=== PATIENT | female | born 1950 | race Caucasian/White ===

== ENCOUNTER → 2018-05-15 02:58 | Outpatient (CLI) | payer MEDICARE, OTHER, SELFPAY ==
[2018-05-15 08:37] LABS: Hemoglobin A1C 7.3 % (4.5-6.2)
[2018-05-15 08:40] LABS: ALT 38 U/L (12-78); AST 19 U/L (15-37); Albumin 3.4 g/dL (3.4-5.0); Alkaline Phosphatase 94 U/L (46-116); Anion Gap 8.7 mmol/L (3-11); BUN 26 mg/dL (7-18); Bilirubin, Total 0.4 mg/dL (0.2-1.0); CO2 28.3 mmol/L (21.0-32.0); CREATININE 1.08 mg/dL (0.55-1.02); Calcium 8.8 mg/dL (8.5-10.1); Chloride 104 mmol/L (98-107); Cholesterol 129 mg/dL (50-200); Glucose 135 mg/dL (70-100); HDL Cholesterol 26 mg/dL (40-60); LDL CHOLESTEROL 81 mg/dL (<100); Potassium 4.3 mmol/L (3.5-5.1); Sodium 141 mmol/L (136-145); Triglyceride 237 mg/dL (30-150)
[2018-05-15 09:02] LABS: Total Protein 6.1 g/dL (6.4-8.2)
[2018-05-15 09:53] LABS: Microalb ug/mg Crea 24.4 ug/mg Cr
== END ==
PROVIDERS: PCP Family Medicine; Visit Provider Family Medicine
DX: E11.9 Type 2 diabetes mellitus without complications (principal); I10 Essential (primary) hypertension; E78.5 Hyperlipidemia, unspecified; M1A.0720 Idiopathic chronic gout, left ankle and foot, without tophus (tophi)
CPT/HCPCS: 80053; 80061; 83721; 82043; 82570; 83036; 84550

== ENCOUNTER 2018-10-12 01:39 | Outpatient (CLI) | payer MEDICARE, OTHER, SELFPAY ==
[2018-10-12 13:15] LABS: Hemoglobin A1C 7.5 % (4.5-6.2)
== END 2018-10-12 01:59 ==
PROVIDERS: PCP Family Medicine; Visit Provider Family Medicine
DX: E11.9 Type 2 diabetes mellitus without complications (principal)
CPT/HCPCS: 36415; 83036

== ENCOUNTER 2019-01-08 01:25 | Outpatient (CLI) | payer MEDICARE, OTHER, SELFPAY ==
[2019-01-08 07:54] LABS: Hemoglobin A1C 7.6 % (4.5-6.2)
[2019-01-08 09:09] LABS: ALT 41 U/L (12-78); AST 18 U/L (15-37); Albumin 3.4 g/dL (3.4-5.0); Alkaline Phosphatase 91 U/L (46-116); Anion Gap 10.3 mmol/L (3-11); BUN 26 mg/dL (7-18); Bilirubin, Total 0.3 mg/dL (0.2-1.0); CO2 27.7 mmol/L (21.0-32.0); Chloride 104 mmol/L (98-107); Cholesterol 147 mg/dL (50-200); Glucose 158 mg/dL (70-100); HDL Cholesterol 23 mg/dL (40-60); LDL CHOLESTEROL 88 mg/dL (<100); Potassium 4.3 mmol/L (3.5-5.1); Sodium 142 mmol/L (136-145); Total Protein 6.1 g/dL (6.4-8.2); Triglyceride 250 mg/dL (30-150)
[2019-01-08 09:24] LABS: Calcium 9.4 mg/dL (8.5-10.1)
== END 2019-01-08 01:45 ==
PROVIDERS: PCP Family Medicine; Visit Provider Family Medicine
DX: E11.9 Type 2 diabetes mellitus without complications (principal); I10 Essential (primary) hypertension; E78.5 Hyperlipidemia, unspecified
CPT/HCPCS: 36415; 80053; 80061; 83721; 83036

== ENCOUNTER 2019-08-15 03:19 | Outpatient (CLI) | payer MEDICARE, OTHER, SELFPAY ==
[2019-08-15 11:22] LABS: Hemoglobin A1C 8.3 % (4.5-6.2)
[2019-08-15 11:57] LABS: COMMENT (LAB VIEW ONLY) 156.85 mg/dL; Microalb ug/mg Crea 22.3 ug/mg Cr
== END 2019-08-15 03:39 ==
PROVIDERS: PCP Family Medicine; Visit Provider Family Medicine
DX: E11.9 Type 2 diabetes mellitus without complications (principal)
CPT/HCPCS: 36415; 82043; 82570; 83036

== ENCOUNTER 2019-12-02 01:22 | Outpatient (CLI) | payer MEDICARE, OTHER, SELFPAY ==
--- NOTE | 2019-12-02 14:45 | DI.MAMMO_ITS ---
EXAM: MG MAMMO SCREENING CLINICAL HISTORY: SCREENING, Z12.39 TECHNIQUE: Bilateral full field digital CC and MLO mammographic images were obtained with 3D tomosyn thesis and utilizing computer aided detection (CAD). COMPARISON: Available for comparison. FINDINGS: Masses/Architectural Distortion: None seen. Stable bilateral nodules. Microcalcifications: No suspicious pleomorphic-type are seen. Skin Thickening/Nipple Retraction: None. IMPRESSION: 1. No significant interval change with no specific features of malignancy noted. 2. Unless there is more urgent need, screening mammography is recommended, as per [employer] guidelines. BI-RADS Cat 1 - Negative Breast Density - Category B - Scattered areas of fibroglandular density A negative radiographic report should not delay biopsy if a dominant or clinically suspicious mass is present. Up to ten percent of cancers are not identified on mammography. A negative report may reinforce clinical impression. Adenosis and dense breasts may obscure an underlying neoplasm. False positive reports average 6 to 10%. Patient will receive a letter notifying them of these results.
== END 2019-12-02 01:42 ==
PROVIDERS: PCP Family Medicine; Visit Provider Family Medicine
DX: Z12.31 Encounter for screening mammogram for malignant neoplasm of breast (principal)
CPT/HCPCS: 77063; 77067

== ENCOUNTER 2019-12-02 15:29 | Outpatient (CLI) | payer MEDICARE, OTHER, SELFPAY ==
[2019-12-02 16:11] LABS: Hemoglobin A1C 7.5 % (3.8-5.6)
== END 2019-12-02 15:49 ==
PROVIDERS: PCP Family Medicine; Visit Provider Family Medicine
DX: E11.9 Type 2 diabetes mellitus without complications (principal)
CPT/HCPCS: 36415; 80048; 80061; 83036; 84550

== ENCOUNTER 2020-03-30 02:11 | Outpatient (CLI) | payer MEDICARE, OTHER, SELFPAY ==
[2020-03-30 08:36] LABS: Hemoglobin A1C 7.1 % (3.8-5.6)
[2020-03-30 09:05] LABS: ALT 30 U/L (14-59); AST 22 U/L (15-37); Albumin 3.5 g/dL (3.4-5.0); Alkaline Phosphatase 90 U/L (46-116); Anion Gap 6.6 mmol/L (3-11); BUN 24 mg/dL (7-18); Bilirubin, Total 0.4 mg/dL (0.2-1.0); CO2 30.4 mmol/L (21.0-32.0); CREATININE 1.13 mg/dL (0.55-1.02); Calcium 9.1 mg/dL (8.5-10.1); Calculated LDL 74 mg/dL (<100); Chloride 103 mmol/L (98-107); Cholesterol 149 mg/dL (<200); Estimated GFR 47.47 (mL/min/1.73m2); Glucose 136 mg/dL (74-106); HDL Cholesterol 23 mg/dL (40-60); Potassium 4.3 mmol/L (3.5-5.1); Sodium 140 mmol/L (136-145); Total Protein 6.2 g/dL (6.4-8.2); Triglyceride 264 mg/dL (<150)
== END 2020-03-30 02:31 ==
PROVIDERS: PCP Family Medicine; Visit Provider Family Medicine
DX: E11.9 Type 2 diabetes mellitus without complications (principal)
CPT/HCPCS: 36415; 80053; 80061; 83036

== ENCOUNTER 2020-08-25 03:36 | Outpatient (CLI) | payer MEDICARE, OTHER, SELFPAY ==
[2020-08-25 12:57] LABS: Hemoglobin A1C 7.7 % (<5.7)
[2020-08-25 13:04] LABS: COMMENT (LAB VIEW ONLY) 94.97 mg/dL; Microalb ug/mg Crea 5.6 ug/mg Cr
[2020-08-25 13:37] LABS: ALT 34 U/L (14-59); AST 21 U/L (15-37); Albumin 3.5 g/dL (3.4-5.0); Alkaline Phosphatase 92 U/L (46-116); BUN 35 mg/dL (7-18); Bilirubin, Total 0.4 mg/dL (0.2-1.0); CREATININE 1.33 mg/dL (0.55-1.02); Calcium 8.9 mg/dL (8.5-10.1); Chloride 102 mmol/L (98-107); Estimated GFR 39.22 (mL/min/1.73m2); Glucose 122 mg/dL (74-106); Potassium 4.1 mmol/L (3.5-5.1); Sodium 137 mmol/L (136-145); Total Protein 6.2 g/dL (6.4-8.2)
== END 2020-08-25 03:56 ==
PROVIDERS: PCP Family Medicine; Visit Provider Family Medicine
DX: E11.9 Type 2 diabetes mellitus without complications (principal)
CPT/HCPCS: 36415; 80053; 82043; 82570; 83036

== ENCOUNTER 2021-01-01 02:35 | Outpatient (CLI) | payer MEDICARE, OTHER, SELFPAY ==
[2021-01-01 08:40] LABS: Microalb ug/mg Crea 9.8 ug/mg Cr
[2021-01-01 09:02] LABS: BUN 33 mg/dL (7-18); CREATININE 1.4 mg/dL (0.55-1.02); Chloride 103 mmol/L (98-107); Estimated GFR 36.96 (mL/min/1.73m2); Glucose 138 mg/dL (74-106); Potassium 3.6 mmol/L (3.5-5.1); Sodium 139 mmol/L (136-145); Uric Acid 6.1 mg/dL (2.6-6.0)
[2021-01-01 14:47] LABS: Vitamin B12 570 pg/mL (193-986)
== END 2021-01-01 02:36 | disposition home or self-care (01) ==
LOC: LBO 02:36
PROVIDERS: PCP Family Medicine; Visit Provider Family Medicine
DX: E11.9 Type 2 diabetes mellitus without complications (principal); E79.0 Hyperuricemia without signs of inflammatory arthritis and tophaceous disease
CPT/HCPCS: 36415; 80048; 82043; 82570; 82607; 83036; 84550

== ENCOUNTER 2021-04-01 02:27 | Outpatient (CLI) | payer MEDICARE, OTHER, SELFPAY ==
[2021-04-01 12:30] LABS: Anion Gap 10.3 mmol/L (3-11); BUN 26 mg/dL (7-18); CO2 28.7 mmol/L (21.0-32.0); CREATININE 1.1 mg/dL (0.55-1.02); Calcium 8.7 mg/dL (8.5-10.1); Chloride 104 mmol/L (98-107); Estimated GFR 48.82 (mL/min/1.73m2); Glucose 138 mg/dL (74-106); Potassium 3.6 mmol/L (3.5-5.1); Sodium 143 mmol/L (136-145); Uric Acid 5.5 mg/dL (2.6-6.0)
[2021-04-01 12:39] LABS: Hemoglobin A1C 7.4 % (<5.7)
[2021-04-01 12:53] LABS: Calculated LDL 28 mg/dL (<100); Cholesterol 81 mg/dL (<200); HDL Cholesterol 24 mg/dL (40-60); Triglyceride 146 mg/dL (<150)
== END 2021-04-01 02:28 | disposition home or self-care (01) ==
PROVIDERS: PCP Family Medicine; Visit Provider Family Medicine
DX: E11.9 Type 2 diabetes mellitus without complications (principal); E79.0 Hyperuricemia without signs of inflammatory arthritis and tophaceous disease
CPT/HCPCS: 36415; 80048; 80061; 83036; 84550

== ENCOUNTER 2021-07-05 00:51 | Outpatient (CLI) | payer MEDICARE, OTHER, SELFPAY ==
--- NOTE | 2021-07-05 07:45 | DI.MAMMO_ITS ---
Exam(s) MAMMO SCREENING EXAM: MAMMO SCREENING CLINICAL HISTORY: screening,z12.39. TECHNIQUE: Bilateral full field digital CC and MLO mammographic images were obtained with 3D tomosyn thesis and utilizing computer aided detection (CAD). COMPARISON: Prior mammograms dating back to 2011, the most recent being November 2019. FINDINGS: There are no CAD designations. Small nodular density medial of center in the left breast is unchanged from 2014 and therefore benign . Other nodular density more anteromedially in the left breast also unchanged prior studies. There are no new spiculated masses nor malignant-appearing microcalcification groups in either breast . There is no significant architectural distortion nor skin thickening-retraction. IMPRESSION: Stable benign findings. No radiographic evidence of malignancy. BI-RADS Category 2 - Benign Findings Breast Density - Category B - Scattered areas of fibroglandular density Breast density Category C or D implies that the patient has dense breast tissue. Dense breast tissue can make it harder to find cancer on a mammogram. Dense breast tissue is also associated with an incr eased risk of breast cancer. This information about the result of the mammogram report was provided to the patient to raise their awareness. Use this report when you speak with the patient about their risks for breast cancer, which includes their family history. At that time, you may recommend additional screening tests (Ultrasoun d or MRI) as these tests may add significant information. A negative radiographic report should not delay biopsy if a dominant or clinically suspicious mass is present. Up to ten percent of cancers are not identified on mammography. A negative report may reinforce clinical impression. Adenosis and dense breasts may obscure an underlying neoplasm. False positive reports average 6 to 10%. Patient will receive a letter notifying them of these results.
== END 2021-07-05 01:11 ==
PROVIDERS: PCP Family Medicine; Visit Provider Family Medicine
DX: Z12.31 Encounter for screening mammogram for malignant neoplasm of breast (principal)
CPT/HCPCS: 77063; 77067

== ENCOUNTER 2022-02-19 20:53 | Emergency (ER) | payer MEDICARE, OTHER, SELFPAY ==
[2022-02-19 21:07] VITALS: BP 177/62; PULSE 97; RESP 16; TEMP 36.8; O2SAT 96
--- NOTE | 2022-02-19 21:34 | W.ED.GENAD ---
Discharge Plan Disposition Patient Disposition: HOME Condition: Good Discharge Details Clinical Impression: URI (upper respiratory infection), Acute otitis media, left Primary Care Provider: Jeyson Abernathy ED Provider: Salazar Benz Home Meds and New Rx's Prescriptions: New amoxicillin-pot clavulanate 875-125 mg tablet 1 tab PO BID 5 Days Qty: 10 0RF No Action allopurinol 100 mg tablet 100 mg PO DAILY Qty: 90 4RF amlodipine 2.5 mg tablet 2.5 mg PO DAILY Qty: 90 4RF chlorthalidone 50 mg tablet 50 mg PO DAILY Qty: 90 4RF Jardiance 25 mg tablet 25 mg PO DAILY Qty: 90 4RF losartan 100 mg tablet 100 mg PO DAILY Qty: 90 4RF metformin 500 mg tablet extended release 24hr 1,000 mg PO DAILY Qty: 180 4RF rosuvastatin 20 mg tablet 20 mg PO DAILY Qty: 90 4RF multivitamin 1 EACH tablet 1 tab PO DAILY aspirin 325 MG tablet 325 mg PO DAILY Qty: 100 (DME) FreeStyle Lance [employer] Mark Misc See Rx Instructions [id number] .MEDSUPPLY Qty: 1 0RF Rx Instructions: As directed indomethacin 50 mg capsule 50 mg PO TID PRN (Reason: gout) Qty: 30 1RF albuterol sulfate 90 mcg/actuation HFA aerosol inhaler 2 puff IH QID PRN (Reason: shortness of breath or wheezing) Qty: 18 4RF cholecalciferol (vitamin D3) 25 mcg (1,000 unit) capsule 1,000 unit PO DAILY Qty: 90 4RF omega-3 fatty acids-fish oil 360-1,200 mg capsule 1 cap PO DAILY Qty: 120 1RF clotrimazole 1 % cream 1 applic topical BID Qty: 45 2RF Discharge Instructions Instructions: Ear Infection (ED) Additional Instructions: At this time your symptoms appear consistent with otitis media which is an infection of your ear on the left. You also likely have a very early mild pneumonia. Please take the antibiotic Augmentin as directed. 1 pill every 12 hours. The remainder of the prescription has been sent to your pharmacy. Please take [id number] loratadine 10 mg every 24 hours to help with the congestion in your ears. Please take your Tessalon Pearls as directed. If you notice any worsening of your symptoms, or any new symptoms such as vomiting, diarrhea, fever, chills, shortness of breath, chest pain, numbness, weakness, or fainting , please return immediately to the emergency department for reevaluation. Please follow up with your primary care provider as soon as possible for reassessment and reevaluation. As always, it was a pleasure participating in your medical care today. Referrals: Jeyson Abernathy MD [Primary Care Provider] - Discharge Data Discharge Date/Time-TO BE ENTERED AT DEPARTURE: 02/19/22 21:50 Medical Decision Making 71-year-old female with a past medical history of distant tobacco use, diabetes mellitus, hypertension, high cholesterol, who recently just got back from a trip to [place], presents today for evaluation of cough, left ear pain, mild headache. Patient states that the symptoms been present for the last few days. She denies any drainage from the ear. It is not the worst headache of her life. The patient denies any headache red flags of worst headache of life, thunderclap headache, neck pain, fever, chills, concerning family history of polycystic kidney disease, Marfan syndrome, Mary-Danlos syndrome, abdominal aortic aneurysm, aortic dissection, or intracranial aneurysm. She denies any chest pain or shortness of breath. She denies any vomiting or diarrhea. No other complaints at this time. No other modifying factors Great memory physical exam demonstrates notable left-sided otitis media. In addition to the there is evidence of mild crackles scattered throughout. Suspect mild bronchitis versus early pneumonia in addition to her otitis media. Will treat with Augmentin for both. Antibiotic choice: We have chosen to give Augmentin here for the patient's pneumonia. Recent resistant pattern studies from our hospital as well as other local facilities including [facility] have both demonstrated significant resistance to azithromycin, and notable susceptibility to common community-acquired pneumonia organisms for both amoxicillin, and Augmentin. Discussed red flags for which to return. Will recommend loratadine as well for decongestion. I have extensively reviewed the treatment plan and discharge instructions with the patient. I have addressed all patient concerns at this time. The patient was made aware of what symptoms to monitor for that would warrant a return to the emergency department. Discussed the plan with the patient, they demonstrate verbal understanding and agreement with our assessment and plan at this time. The documentation in this chart was dictated using [employer] dictation software. Please excuse any dictation errors. Of note the patient's flu/COVID/RSV are all negative HPI General Date/Time Provider Initiated Documentation: 02/19/22 21:23. HPI Narrative: 71-year-old female with a past medical history of distant tobacco use, diabetes mellitus, hypertension, high cholesterol, who recently just got back from a trip to [place], presents today for evaluation of cough, left ear pain, mild headache. Patient states that the symptoms been present for the last few days. She denies any drainage from the ear. It is not the worst headache of her life. The patient denies any headache red flags of worst headache of life, thunderclap headache, neck pain, fever, chills, concerning family history of polycystic kidney disease, Marfan syndrome, Mary-Danlos syndrome, abdominal aortic aneurysm, aortic dissection, or intracranial aneurysm. She denies any chest pain or shortness of breath. She denies any vomiting or diarrhea. No other complaints at this time. No other modifying factors Related Data Home Medications Medication Instructions Recorded Confirmed multivitamin 1 tab PO DAILY 02/01/13 02/19/22 aspirin 325 mg tablet 325 mg PO DAILY #100 tab-caps 09/17/14 02/19/22 flash glucose scanning reader #1 ea 10/13/19 12/06/21 (FreeStyle Lance [employer] Mark) indomethacin 50 mg capsule 50 mg PO TID PRN gout #30 caps 02/03/20 12/06/21 albuterol sulfate 90 mcg/actuation 2 puff inhalation QID PRN 05/11/20 12/06/21 aerosol inhaler shortness of breath or wheezing #18 grams cholecalciferol (vitamin D3) 25 1,000 unit PO DAILY #90 tab-caps 01/19/21 02/19/22 mcg (1,000 unit) capsule omega-3 fatty acids-fish oil 360 1 cap PO DAILY #120 tab-caps 01/19/21 02/19/22 mg-1,200 mg capsule clotrimazole 1 % topical cream 1 applic topical BID #45 grams 07/26/21 02/19/22 allopurinol 100 mg tablet 100 mg PO DAILY #90 tab-caps 09/06/21 02/19/22 amlodipine 2.5 mg tablet 2.5 mg PO DAILY #90 tabs 09/06/21 02/19/22 chlorthalidone 50 mg tablet 50 mg PO DAILY #90 tabs 09/06/21 02/19/22 empagliflozin 25 mg tablet 25 mg PO DAILY #90 tabs 09/06/21 02/19/22 (Jardiance) losartan 100 mg tablet 100 mg PO DAILY #90 tabs 09/06/21 02/19/22 metformin 500 mg tablet,extended 1,000 mg PO DAILY #180 tabs 09/06/21 02/19/22 release 24hr rosuvastatin 20 mg tablet 20 mg PO DAILY #90 tabs 09/06/21 02/19/22 amoxicillin 875 mg-potassium 1 tab PO BID 5 days #10 tabs 02/19/22 clavulanate 125 mg tablet Previous Rx's Medication Instructions Recorded flash glucose scanning reader #1 ea 10/13/19 (Zazubae [employer] Mark) indomethacin 50 mg capsule 50 mg PO TID PRN gout #30 caps 02/03/20 albuterol sulfate 90 mcg/actuation 2 puff inhalation QID PRN 05/11/20 aerosol inhaler shortness of breath or wheezing #18 grams cholecalciferol (vitamin D3) 25 1,000 unit PO DAILY #90 tab-caps 01/19/21 mcg (1,000 unit) capsule omega-3 fatty acids-fish oil 360 1 cap PO DAILY #120 tab-caps 01/19/21 mg-1,200 mg capsule clotrimazole 1 % topical cream 1 applic topical BID #45 grams 07/26/21 allopurinol 100 mg tablet 100 mg PO DAILY #90 tab-caps 09/06/21 amlodipine 2.5 mg tablet 2.5 mg PO DAILY #90 tabs 09/06/21 chlorthalidone 50 mg tablet 50 mg PO DAILY #90 tabs 09/06/21 empagliflozin 25 mg tablet 25 mg PO DAILY #90 tabs 09/06/21 (Jardiance) losartan 100 mg tablet 100 mg PO DAILY #90 tabs 09/06/21 metformin 500 mg tablet,extended 1,000 mg PO DAILY #180 tabs 09/06/21 release 24hr rosuvastatin 20 mg tablet 20 mg PO DAILY #90 tabs 09/06/21 amoxicillin 875 mg-potassium 1 tab PO BID 5 days #10 tabs 02/19/22 clavulanate 125 mg tablet Allergies Allergy/AdvReac Type Severity Reaction Status Date / Time Gadolinium-Containing Allergy Intermediate Skin Rash Verified 02/19/22 21:10 Contrast Medi nickel Allergy Unknown Skin Rash Verified 02/19/22 21:10 Calcium Channel Blocking AdvReac Severe PEDAL EDEMA Verified 02/19/22 21:10 Agents-Dih atorvastatin AdvReac Unknown INTOLERANT, Verified 02/19/22 21:10 WEAKNESS General Stated Complaint: RespSymp NILSON: 4 Review of Systems All systems reviewed & are unremarkable except as noted in HPI and below PFSH All Active Problems URI (upper respiratory infection) (Acute) Acute otitis media, left (Acute) Heart murmur (Acute) History of early systolic murmur, consistent with benign murmur Obesity (Chronic) COVID-19 (Acute) positive test on 10-14-20 1st dose of vaccine: 09-22-20 Elevated uric acid in blood (Acute 05/09/14) ?one episode of acute arthritis 2013 Controlled type 2 diabetes mellitus without complication, without long-term current use of insulin (Acute 11/07/16) GRF 42 ml/min; on Metformin low dose Hyperlipidemia (Acute) Essential hypertension (Acute) Medical History DM (diabetes mellitus) HTN (hypertension) Surgical History Colonoscopy - MAC (01/08/18) Dilation and curettage X 2 Incision & Drainage, Abscess or Hematoma (09/25/13) RIGHT HAND Family History Mother Asthma Cancer Father , age 54 Heart disease Myocardial infarction Sister Bladder cancer Sister Diabetes Essential hypertension Brother No problems noted. Maternal Grandfather Alcohol abuse Heart disease Paternal Grandfather Lung cancer Maternal Grandmother Heart disease Paternal Grandmother Essential hypertension Heart disease Uterine cancer Son Essential hypertension Daughter Alcohol abuse Depression Social History Smoking/Tobacco Use Status: Former Tobacco Use Tobacco: How many years used: 16 Smoking risk assessment performed?: Yes Alcohol Intake: never Drug use: Never Household members: none Communication Needs: Hard of Hearing Pets and animals: No Sexually active: No Current gender identity: decline to answer What is your relationship status?: How often do you talk on the phone with friends or family?: three or more times per week How often do you get together with friends or relatives?: three or more times per week How often do you attend methodist or sabianism services?: 4 or more times per year Do you belong to any clubs or organized social groups?: no Panel score (0-1 are the most socially isolated patients): 2 What type of physical activity do you participate in: walking Duration: 15-30 minutes/day Frequency: 1-2 times per week Raquel/Latter-Day: congre Special raquel needs: No Seatbelt use: always Drive intox or ride w/intox emergency vehicle driver: No Do you feel safe at home: Yes Do you feel safe in your relationship?: Yes Exam Narrative Exam Narrative: 1.Const: Well-nourished, Well-developed, appearing stated age 2.Eyes: PERRL, no conjunctival injection, and symmetrical lids. 3.ENT: Atraumatic external nose and ears. Moist MM. Neck: Symmetric, trachea midline, No thyromegaly. Left ear patient demonstrates notable left-sided otitis media with effusion, no evidence of rupture. Right side tympanic membrane is normal. Patient demonstrates good movement of cervical neck. There is no nuchal rigidity, no nuchal tenderness. Patient is able to flex the neck without any difficulty or significant pain. Negative Kernig's and Brudzinski sign. 4.CVS: +S1/S2, No murmurs or gallops. Peripheral pulses 2+ and equal in all extremities. Brisk capillary refill in all extremities. 5.RESP: Unlabored respiratory effort. Scattered crackles. No wheezes or rhonchi. 6.GI: Soft, Nontender/Nondistended, No hepatosplenomegaly. No guarding or rebound. 7.MSK: Normocephalic/Atraumatic, Extremities w/o deformity or ttp No cyanosis or clubbing, Normal movement of all extremities 8.Skin: Warm, Dry. No rashes or lesions. 9.Neuro: metal gauge maker II-XII grossly intact. Sensation grossly intact, no focal neurologic deficits. 10.Psych: (AAO) x3. Appropriate mood and affect Course Vital Signs Vital signs: Vital Signs Temperature 36.8 C 02/19/22 21:07 Pulse 97 H 02/19/22 21:07 Respiratory Rate 16 02/19/22 21:07 Blood Pressure 177/62 H 02/19/22 21:07 Pulse Oximetry 96 02/19/22 21:07 Temperature 36.8 C 02/19/22 21:07 Temperature Source Oral 02/19/22 21:07 Pulse 97 H 02/19/22 21:07 Respiratory Rate 16 02/19/22 21:07 Respiratory Effort Non-Labored 02/19/22 21:12 Blood Pressure 177/62 H 02/19/22 21:07 Pulse Oximetry 96 02/19/22 21:07 Pain Level 4 02/19/22 21:07
[2022-02-19 21:43] VITALS: BP 157/59; PULSE 99; RESP 18; O2SAT 96
[2022-02-19] MEDS: Amoxicillin 875/Clav. 125 TAB PO (21:44)
[2022-02-19] MEDS: Amox. 875/Clav. 125, 2 TABS/BTL 1 TAB PO (21:44)
[2022-02-19 22:38] LABS: COVID-19 PCR Negative (Negative); Influenza A PCR Negative (Negative); Influenza B PCR Negative (Negative); RSV PCR Negative (Negative)
[2022-02-19 22:46] LABS: Source Nasopharynx
== END 2022-02-19 21:50 | disposition home or self-care (01) ==
PROVIDERS: Emergency Provider Student in an Organized Health Care Education/Training Program; PCP Family Medicine
DX: J06.9 Acute upper respiratory infection, unspecified (principal); H66.92 Otitis media, unspecified, left ear
CPT/HCPCS: 87637; 99283

== ENCOUNTER 2022-03-22 02:52 | Outpatient (CLI) | payer MEDICARE, OTHER, SELFPAY ==
[2022-03-22 13:06] LABS: ALT 38 U/L (14-59); AST 25 U/L (15-37); Albumin 3.3 g/dL (3.4-5.0); Alkaline Phosphatase 81 U/L (46-116); Anion Gap 7.9 mmol/L (3-11); BUN 35 mg/dL (7-18); Bilirubin, Total 0.3 mg/dL (0.2-1.0); CO2 29.1 mmol/L (21.0-32.0); CREATININE 1.1 mg/dL (0.55-1.02); Calcium 8.7 mg/dL (8.5-10.1); Calculated LDL 25 mg/dL (<100); Chloride 101 mmol/L (98-107); Cholesterol 102 mg/dL (<200); Estimated GFR 48.69 (mL/min/1.73m2); Glucose 163 mg/dL (74-106); HDL Cholesterol 25 mg/dL (40-60); Potassium 3.3 mmol/L (3.5-5.1); Sodium 138 mmol/L (136-145); Total Protein 6.1 g/dL (6.4-8.2); Triglyceride 260 mg/dL (<150)
[2022-03-22 13:16] LABS: COMMENT (LAB VIEW ONLY) 108.88 mg/dL; Microalb ug/mg Crea 9.5 ug/mg Cr
[2022-03-22 13:27] LABS: Hemoglobin A1C 8.3 % (<5.7)
[2022-03-23 10:55] LABS: Lab Add On Test DONE
[2022-03-23 11:14] LABS: Uric Acid 5.2 mg/dL (2.6-6.0)
== END 2022-03-22 02:53 | disposition home or self-care (01) ==
LOC: LOS 02:53
PROVIDERS: PCP Family Medicine; Visit Provider Family Medicine
DX: E11.9 Type 2 diabetes mellitus without complications (principal); I10 Essential (primary) hypertension
CPT/HCPCS: 36415; 80053; 80061; 82043; 82570; 83036; 84550

== ENCOUNTER 2022-09-29 02:35 | Outpatient (CLI) | payer MEDICARE, OTHER, SELFPAY ==
[2022-09-29 07:59] LABS: Hemoglobin A1C 9.1 % (<5.7)
[2022-09-29 08:03] LABS: ALT 36 U/L (14-59); AST 19 U/L (15-37); Albumin 3.5 g/dL (3.4-5.0); Alkaline Phosphatase 95 U/L (46-116); Anion Gap 11.6 mmol/L (3-11); BUN 28 mg/dL (7-18); Bilirubin, Total 0.4 mg/dL (0.2-1.0); CO2 27.4 mmol/L (21.0-32.0); CREATININE 1.1 mg/dL (0.55-1.02); Calcium 8.8 mg/dL (8.5-10.1); Chloride 102 mmol/L (98-107); Estimated GFR 52.73 (mL/min/1.73m2); Glucose 204 mg/dL (74-106); Potassium 3.2 mmol/L (3.5-5.1); Sodium 141 mmol/L (136-145); Total Protein 6.7 g/dL (6.4-8.2)
[2022-09-30 11:28] LABS: Varicella IgG Antibody Positive (See Note)
[2022-09-30 11:31] LABS: Measles IgG Antibody Positive (See Note)
[2022-09-30 11:33] LABS: Mumps Antibody IgG Negative (See Note)
[2022-09-30 11:35] LABS: Rubella IgG Ab (UVM) Positive (See Note)
== END 2022-09-29 02:36 | disposition home or self-care (01) ==
LOC: LBO 02:35
PROVIDERS: PCP Family Medicine; Visit Provider Family Medicine
DX: E11.9 Type 2 diabetes mellitus without complications (principal); Z02.1 Encounter for pre-employment examination
CPT/HCPCS: 36415; 80053; 86787; 83036; 86735; 86762; 86765

== ENCOUNTER 2022-12-14 01:28 | Outpatient (CLI) | payer MEDICARE, OTHER, SELFPAY ==
--- NOTE | 2022-12-14 09:02 | DI.MAMMO_ITS ---
Exam(s) MAMMO SCREENING EXAM: MAMMO SCREENING CLINICAL HISTORY: screening,Z12.39 TECHNIQUE: Bilateral full field digital CC and MLO mammographic images were obtained with 3D tomosyn thesis and utilizing computer aided detection (CAD). COMPARISON: Available for comparison. FINDINGS: Masses/Architectural Distortion: There are stable bilateral pulmonary nodules. No suspicious nodules or areas of architectural distortion. There is a stable area of breast asymmetry in the upper right breast. Microcalcifications: No suspicious pleomorphic-type are seen. Skin Thickening/Nipple Retraction: None. IMPRESSION: 1. No significant interval change with no specific features of malignancy noted. 2. Unless there is more urgent need, screening mammography is recommended, as per [place] [employer] guidelines. BI-RADS Category 2 - Benign Findings Breast Density - Category B - Scattered areas of fibroglandular density Breast density category C or D implies that the patient has dense breast tissue. Dense breast tissue is very common and is not abnormal but dense breast tissue can make it harder to find cancer on a ma mmogram. Also, dense breast tissue may increase their breast cancer risk. This information about the result of the mammogram report was provided to the patient to raise their awareness. Use this report when you speak with the patient about their risks for breast cancer, which includes their family hist ory. At that time, you may recommend for more screening tests (Ultrasound or MRI) as they might be us eful based on their risk. A negative radiographic report should not delay biopsy if a dominant or clinically suspicious mass is present. Up to ten percent of cancers are not identified on mammography. A negative report may reinforce clinical impression. Adenosis and dense breasts may obscure an underlying neoplasm. False positive reports average 6 to 10%. Patient will receive a letter notifying them of these results.
== END 2022-12-14 01:48 ==
LOC: DI 01:28
PROVIDERS: PCP Family Medicine; Visit Provider Family Medicine
DX: Z12.31 Encounter for screening mammogram for malignant neoplasm of breast (principal)
CPT/HCPCS: 77063; 77067

== ENCOUNTER 2023-01-13 08:35 | Outpatient (CLI) | payer MEDICARE, OTHER, SELFPAY | END 2023-01-13 08:36 | disposition home or self-care (01) | LOC: LOS 08:36 | PROVIDERS: PCP Family Medicine; Referring Provider Family Medicine; Visit Provider Family Medicine | DX: E11.9 Type 2 diabetes mellitus without complications (principal) | CPT/HCPCS: 36415; 83036 ==

== ENCOUNTER 2023-05-18 04:04 | Outpatient (CLI) | payer MEDICARE, OTHER, SELFPAY ==
[2023-05-18 08:56] LABS: Hemoglobin A1C 6.7 % (<5.7)
[2023-05-18 09:03] LABS: Anion Gap 7.6 mmol/L (3-11); BUN 26 mg/dL (7-18); CO2 29.4 mmol/L (21.0-32.0); Calcium 9.3 mg/dL (8.5-10.1); Calculated LDL 19 mg/dL (<100); Chloride 100 mmol/L (98-107); Cholesterol 80 mg/dL (<200); Estimated GFR 59.12 (mL/min/1.73m2); Glucose 116 mg/dL (74-106); HDL Cholesterol 31 mg/dL (40-60); Potassium 4.1 mmol/L (3.5-5.1); Sodium 137 mmol/L (136-145); Triglyceride 154 mg/dL (<150)
[2023-05-18 10:15] LABS: COMMENT (LAB VIEW ONLY) 99.98 mg/dL; Microalb ug/mg Crea 8.8 ug/mg Cr
== END 2023-05-18 04:05 | disposition home or self-care (01) ==
PROVIDERS: PCP Family Medicine; Visit Provider Family Medicine
DX: I10 Essential (primary) hypertension (principal); E11.21 Type 2 diabetes mellitus with diabetic nephropathy; E66.09 Other obesity due to excess calories; Z68.39 Body mass index [BMI] 39.0-39.9, adult; N18.30 Chronic kidney disease, stage 3 unspecified; E78.5 Hyperlipidemia, unspecified
CPT/HCPCS: 36415; 80048; 80061; 82043; 82570; 83036

== ENCOUNTER → 2023-07-12 07:36 | Outpatient (BNVA) | payer MEDICARE, OTHER, SELFPAY | PROVIDERS: PCP Family Medicine; Referring Provider Family Medicine; Visit Provider Surgery | DX: Z12.11 Encounter for screening for malignant neoplasm of colon (principal); Z86.010 Personal history of colon polyps ==

== ENCOUNTER 2023-07-27 08:11 | Day surgery (SDC) | payer MEDICARE, OTHER, SELFPAY ==
--- NOTE | 2023-07-26 20:14 | W.PM.DSUDISC ---
Date of service: 07/27/23 Time of Service: 10:04 Discharge Plan Disposition Patient Disposition: Home Condition: Good Discharge Details Reason For Visit: Screening colonocsopy Attending Provider: Gabe Patel Primary Care Provider: Catalina Corona Home Meds and New Rx's Prescriptions: Continued (DME) Joel Blood Glucose Monitor Device See Rx Instructions .Route Rx Instructions: As directed Jardiance 25 mg tablet 25 mg PO DAILY Qty: 90 4RF albuterol sulfate 90 mcg/actuation HFA aerosol inhaler 2 puff IH QID PRN (Reason: shortness of breath or wheezing) Qty: 18 4RF clotrimazole 1 % cream 1 applic topical BID Qty: 45 3RF multivitamin 1 EACH tablet 1 tab PO HS aspirin 325 MG tablet 325 mg PO DAILY Qty: 100 Trulicity 0.75 mg/0.5 mL pen injector 0.75 mg subcut QWEEK Qty: 6 3RF amlodipine 2.5 mg tablet 2.5 mg PO HS chlorthalidone 50 mg tablet 50 mg PO HS allopurinol 100 mg tablet 100 mg PO HS losartan 100 mg tablet 100 mg PO HS cholecalciferol (vitamin D3) 25 mcg (1,000 unit) capsule 1,000 unit PO HS rosuvastatin 10 mg tablet 10 mg PO HS metformin 1,000 mg tablet extended release 24hr 2,000 mg PO HS omega-3 fatty acids-fish oil 360-1,200 mg capsule 1 cap PO HS Discharge Instructions Instructions: Colorectal Polyps (GEN) Additional Instructions: Genesis, we were able to complete your colonoscopy today without any difficulty. I did find 1 polyp within your rectum. I removed this completely. It will take a little bit of time for me to get the results from the pathology report, but once I have that, I will be in touch with my recommendations for your next colonoscopy. If you have any questions in the meantime, please do not hesitate to call. 1. If tolerated, consume a soft, low fiber diet for 1-2 days. 2[address] Do not drive, drink alcohol, operate machinery, make critical decisions, or do activities that require coordination or balance for 24 hours. 3. Because air was put into your colon during the procedure, expelling air from your rectum (passing gas or farting) is normal. 4. You may not have a bowel movement for 1-3 days because of the colonoscopy prep. This is normal. 5. Go directly to the emergency room if you notice any of the following: Develop chills (warm to touch), or if you have a thermometer and your temperature is above 101 Difficulty breathing or difficultly swallowing Persistent vomiting Severe abdominal pain, other than gas cramps Severe chest pain Black, tarry stools Any bleeding ? exceeding one tablespoon 6. Call your physician if the site where your intravenous was started becomes red, swollen, painful, and warm to touch. 7. Your physician has reviewed your pre-procedure medications. Please continue to take those medications as previously ordered. You will be given specific information/education regarding any changes to your medications before leaving. Activity:: Activity as Tolerated Diet:: As Tolerated Discharge Orders Discharge Orders: Discharge Order (Routine); Ordered 07/26/23 Ordered By: Gabe Patel DS: Diagnosis Discharge Diagnosis (1) Screen for colon cancer: Status: Acute Asessment and Plan: Follow-up on pathology report
--- NOTE | 2023-07-26 20:15 | COLE_ITS ---
Date of service: 07/27/23 Time of Service: 10:05 Colonoscopy Report Date of procedure: 07/27/23 Pre-op diagnosis general: screening colonoscopy Post-op diagnosis procedure note: other (Rectal polyp) Procedure: colonoscopy with polypectomy Surgeon: Gabe Patel Anesthesia Type: General:No Airway Estimated blood loss (mL): 10 Pathology: other (0.25 cm rectal polyp) Complications: None Disposition: same day Indications: Genesis is 73 years old and she needs another screening colonoscopy Prep: Miralax/Dulcolax Procedure Start Time: 09:39 Procedure End Time: 09:59 Retraction Time: 13 Findings: 0.25 cm rectal polyp Procedure Description: After the induction of monitored anesthetic care, and with the patient in left lateral decubitus position, I began by performing an external anorectal exam.? Perineum and skin were normal, as was the anal verge.? There was no evidence of external hemorrhoids.? Next, I performed a digital rectal exam.? I did not appreciate any abnormal findings.? Next, I advanced a colonoscope into the rect al vault.? I performed retroflexion.? This appeared normal.? Using insufflation, I then advanced the colonoscope beyond the rectal folds and into the sigmoid colon before advancing towards the cecum. The scope was noted to be in the cecum by identification of the ileocecal valve and appendiceal orifice.? I then began withdrawing the colonoscope using repeated irrigation as necessary for full evaluation of the colonic mucosa. ?Once the scope was withdrawn to the level of the rectum, great care was taken to examine portions of the rectal folds.? In the upper portion of the rectal vault was a 0.25 cm sessile polyp. I removed this with cold forceps. There was minimal bleeding here. Finally, the scope was withdrawn and the patient was brought to the same-day surgery recovery unit as the anesthetic wore off. ?The findings and instructions were shared with the patient prior to discharge. [place] Bowel Prep [place] Bowel Prep Right Colon: 2 Left Colon: 2 Transverse Colon: 3 Total Score: 7
[2023-07-27 08:47] VITALS: BP 136/65; PULSE 63; RESP 16; TEMP 36.3; O2SAT 98
[2023-07-27] MEDS: Lactated Ringers 1,000 ML 80 ML IV (09:23)
--- NOTE | 2023-07-27 09:28 | W.ANESPRE ---
General Info Date of Service Date Performed: 07/27/23 Height: 5 ft 2 in Weight: 88.5 kg Body Mass Index (BMI): 35.6 Surgical Procedure: Operation Date: 07/27/23 09:50 Proposed Procedure Side Surgeon tarun Patel MD Meds Allergies and Home Medications Allergies Allergy/AdvReac Type Severity Reaction Status Date / Time Gadolinium-Containing Allergy Intermediate Skin Rash Verified 07/27/23 08:35 Contrast Medi nickel Allergy Unknown Skin Rash Verified 07/27/23 08:35 Calcium Channel Blocking AdvReac Severe PEDAL EDEMA Verified 07/27/23 08:35 Agents-Dih atorvastatin AdvReac Unknown INTOLERANT, Verified 07/27/23 08:35 WEAKNESS Home Medication Medication Instructions Recorded multivitamin 1 tab PO HS 02/01/13 aspirin 325 mg tablet 325 mg PO DAILY #100 tab-caps 09/17/14 clotrimazole 1 % topical cream 1 applic topical BID #45 grams 04/01/22 blood-glucose meter,mobile dev 10/07/22 (Joel Blood Glucose Monitor) empagliflozin 25 mg tablet 25 mg PO DAILY #90 tabs 10/07/22 (Jardiance) dulaglutide 0.75 mg/0.5 mL 0.75 mg (0.5 mL) subcut QWEEK #6 mL 03/14/23 subcutaneous pen injector (Trulicity) albuterol sulfate 90 mcg/actuation 2 puff inhalation QID PRN 05/19/23 aerosol inhaler shortness of breath or wheezing #18 grams allopurinol 100 mg tablet 100 mg PO HS 07/27/23 amlodipine 2.5 mg tablet 2.5 mg PO HS 07/27/23 chlorthalidone 50 mg tablet 50 mg PO HS 07/27/23 cholecalciferol (vitamin D3) 25 1,000 unit PO HS 07/27/23 mcg (1,000 unit) capsule losartan 100 mg tablet 100 mg PO HS 07/27/23 metformin 1,000 mg tablet,extended 2,000 mg PO HS 07/27/23 release 24hr omega-3 fatty acids-fish oil 360 1 cap PO HS 07/27/23 mg-1,200 mg capsule rosuvastatin 10 mg tablet 10 mg PO HS 07/27/23 Current Visit Medications: Current Medications Generic Name Dose Route Start Last Admin Trade Name Freq PRN Reason Stop Dose Admin Hyoscyamine Sulfate 0.125 mg 11/01/23 20:16 Hyoscyamine 0.125 Mg Sl/Oral/Chew SL 08/25/23 20:15 DIRECTED PRN Ringer's Solution 1,000 mls @ 80 mls/hr 07/27/23 06:00 07/27/23 09:23 IV 08/25/23 23:59 80 mls/hr INFUSION TRAMAINE Administration IV Miscellaneous Supplies 1 each 07/27/23 06:00 Iv Access IV 08/25/23 23:59 DIRECTED TRAMAINE Ondansetron HCl 4 mg 07/26/23 20:16 Ondansetron 4 Mg/2 Ml Vial IVP 08/25/23 20:15 Q4H PRN PRN Nausea / Vomiting Sodium Chloride 0 ml 07/27/23 06:00 Normal Saline Flush 10 Ml Syr IV 08/25/23 23:59 PRN PRN Sodium Chloride 0 ml 07/27/23 06:00 Normal Saline 10 Ml Vial IJ 08/25/23 23:59 DIRECTED PRN Sterile Water 0 ml 07/27/23 06:00 Water,Injection,Sterile 10 Ml Vial IJ 08/25/23 23:59 DIRECTED PRN PFSH Active Problems Active Problems: Problem Status Onset Code Screen for colon cancer Z12.11 Class 2 obesity with body mass index (BMI) of 36.0 to 36.9 in adult E66.9, Z68.36 Tubular adenoma of colon 12/2017 D12.6 Stage 3a chronic kidney disease (CKD) N18.31 Type 2 diabetes mellitus with diabetic nephropathy E11.21 Heart murmur R01.1 Elevated uric acid in blood 05/09/14 E79.0 Hyperlipidemia E78.5 Essential hypertension I10 Medical History Medical History COVID-19 positive test on 10-14-20 1st dose of vaccine: 09-22-20 HTN (hypertension) DM (diabetes mellitus) Surgical History Surgical History Incision & Drainage, Abscess or Hematoma (09/25/13) RIGHT HAND Dilation and curettage X 2 Colonoscopy - MAC (01/08/18) Tobacco Smoking/Tobacco Use Status: Former Tobacco Use Passive smoking exposure: Yes Second hand exposure: Yes Alcohol Alcohol Intake: never Substance Use Substance use: Never Substance use type: does not use Vital Signs and Lab Results Vital Signs Most Recent Vital Signs in EMR: Most Recent Vital Signs Temp Pulse Resp BP Pulse Ox 36.3 C L 63 16 136/65 98 07/27/23 08:47 07/27/23 08:47 07/27/23 08:47 07/27/23 08:47 07/27/23 08:47 Point of Care Results Point of Care Results: Finger Stick Blood Glucose 117 07/27/23 08:59 Lab Results Blood Type / Crossmatch: No Data to Display Complete Blood Count: No Data to Display Complete Metabolic Panel: No Data to Display Liver Function Panel: No Data to Display Coagulation Panel: No Data to Display Cardiac Panel: No Data to Display Arterial Blood Gas: No Data to Display Venous Blood Gas: No Data to Display Pancreas Panel: No Data to Display Thyroid Panel: No Data to Display Infectious Disease: No Data to Display Blood Cultures: No Data to Display Toxicology Panel: No Data to Display Anesthesia Assessment and Plan Anesthesia History Personal History: No History of Anesthesia Complications Family History: No Family History of Anesthesia Complications Exercise Tolerance Exercise Tolerance: Metabolic Equivalents>4 Pertinent Negatives Pertinent Negatives: No Symptoms of GERD, No Major Cardiovascular Symptoms or Complaints and No Major Pulmonary Symptoms or Complaints Cardiac & Pulmonary Exam Cardiac Exam: Normal S1/S2 Heart Sounds Pulmonary Exam: Clear Bilateral Breath Sounds Implantable Cardiac Device Does patient have a Pacemaker or an ICD?: No Airway Exam Known Difficult Airway: No Mallampati Class: 2 Mouth Opening: Normal (> 3cm) Thyromental Distance: Greater than 3 cm Neck Range of Motion: Full ROM Neck Circumference: Normal Teeth Condition: Normal Dentition ASA Classification ASA Score: ASA 2 Emergency Case?: No NPO Status NPO Status: NPO Clears >2 hours, Solids >8 hours Anesthesia Plan Resuscitation Status: Full Code Anesthesia Technique: General Anesthesia Airway Planned: Natural Airway Monitors Used: Standard Monitors
[2023-07-27 09:30] VITALS: BMI 35.6
--- NOTE | 2023-07-27 09:42 | BOWEL_PTH ---
PATIENT: Genesis Baldwin LOC: [facility] U#:[id number] AGE/SX: 73/F ROOM: RE07/27/[address]: Gabe Patel MD : [id number] BED: DIS: 07/27/2023 SPEC #: [id number] RECD: 07/27/23 12:36 STATUS: ANA REQ #: [id number] JACEY: 07/27/23 09:[address]: Gabe Patel DEPT: Surgical Specimen RECD BY: Genevieve Dumont ENTERED: 07/27/23 12:37 SP TYPE: Bowel OTHR DR: Catalina Corona Tissues: 1 - BIOPSY BOWEL Procedures: GROSS AND MICRO LEVEL 4 Comments: [id number]
[2023-07-27 10:07] VITALS: BP 108/54; PULSE 61; RESP 18; TEMP 36.5; O2SAT 96
--- NOTE | 2023-07-27 10:14 | W.ANESPOSTOP ---
Postoperative Evaluation Date, Time and Location Date Performed: 07/27/23 Time Performed: 10:14 Patient Location: Day [facility] Unit Vital Signs Most Recent Imported Vital Signs: Most Recent Vital Signs Temp Pulse Resp BP Pulse Ox 36.5 C 61 18 108/54 L 96 07/27/23 10:07 07/27/23 10:07 07/27/23 10:07 07/27/23 10:07 07/27/23 10:07 Pain Score Most Recent Pain Score: Most Recent Pain Score Pain Level 0 07/27/23 10:07 Assessment Mental Status: Awake (Alert & Oriented to Patient Baseline) Airway and Respiratory Function: Patent airway with normal (patient baseline) respiratory exam Cardiovascular Function: Hemodynamically Stable Hydration Status: Adequately Hydrated Nausea & Vomiting: No Nausea or Vomiting Pain: Pt. Denies Any Pain Peripheral Nerve Block: Patient did not receive a nerve block
[2023-07-27 10:37] VITALS: BP 119/65; PULSE 63; RESP 18; TEMP 36.5; O2SAT 98
== END 2023-07-27 10:44 | disposition home or self-care (01) ==
PROVIDERS: PCP Family Medicine; Visit Provider Surgery
PROC: 0DJD8ZZ Inspection of Lower Intestinal Tract, Via Natural or Artificial Opening Endoscopic (ICD-10-PCS; CPT 45378; principal; 2023-07-27 09:45)
DX: Z12.11 Encounter for screening for malignant neoplasm of colon (principal); K63.5 Polyp of colon; I10 Essential (primary) hypertension
CPT/HCPCS: 45380; 88305; J2001

== ENCOUNTER 2024-09-03 02:01 | Outpatient (CLI) | payer MEDICARE, OTHER, SELFPAY ==
[2024-09-03 12:57] LABS: ALT 37 U/L (14-59); AST 24 U/L (15-37); Albumin 3.4 g/dL (3.4-5.0); Alkaline Phosphatase 89 U/L (46-116); Anion Gap 10.9 mmol/L (3-11); BUN 21 mg/dL (7-18); Bilirubin, Total 0.42 mg/dL (0.2-1.0); CO2 27.1 mmol/L (21.0-32.0); Calcium 9.6 mg/dL (8.5-10.1); Calculated LDL 35 mg/dL (<100); Chloride 109 mmol/L (98-107); Cholesterol 104 mg/dL (<200); Estimated GFR 58.39 (mL/min/1.73m2); Glucose 104 mg/dL (74-106); HDL Cholesterol 37 mg/dL (40-60); Potassium 4.6 mmol/L (3.5-5.1); Sodium 147 mmol/L (136-145); Total Protein 6.4 g/dL (6.4-8.2); Triglyceride 164 mg/dL (<150)
[2024-09-03 12:58] LABS: COMMENT (LAB VIEW ONLY) 90.24 mg/dL; Microalb ug/mg Crea 22.8 ug/mg Cr
[2024-09-03 13:08] LABS: Uric Acid 3.7 mg/dL (2.6-6.0)
== END 2024-09-03 02:02 | disposition home or self-care (01) ==
PROVIDERS: PCP Family Medicine; Visit Provider Family Medicine
DX: E11.9 Type 2 diabetes mellitus without complications (principal); E11.21 Type 2 diabetes mellitus with diabetic nephropathy; M1A.9XX0 Chronic gout, unspecified, without tophus (tophi)
CPT/HCPCS: 36415; 80053; 80061; 82043; 82570; 84550

== ENCOUNTER → 2024-11-06 13:23 | Outpatient (BNVA) | payer MEDICARE, OTHER, SELFPAY | PROVIDERS: PCP Family Medicine; Referring Provider Family Medicine; Visit Provider Surgery | DX: L72.9 Follicular cyst of the skin and subcutaneous tissue, unspecified (principal) | CPT/HCPCS: 10060; 99214 ==

== ENCOUNTER 2024-11-18 01:19 | Outpatient (CLI) | payer MEDICARE, OTHER, SELFPAY ==
--- NOTE | 2024-11-18 06:30 | DI.RAD_ITS ---
Exam(s) XR KNEE RT 3V AP,LAT,OSMEL EXAM: XR KNEE RT 3V AP,LAT,OSMEL CLINICAL HISTORY: right knee pain,m25.561. TECHNIQUE: 2D digital imaging was performed. Three views. COMPARISON: No exams were available for comparison FINDINGS: BONES: No acute fracture is present. No bony destructive lesion is seen. JOINTS: Severe narrowing of the lateral femoral tibial joint space and prominent periarticular spurri ng. Spurring also noted at the articular aspect of the patella. Compensatory widened medial femoral tibial joint space. A small joint effusion is seen. SOFT TISSUE: Normal. 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 DATA REPOSITORY: RADIATION DOSE DELIVERED:
== END 2024-11-18 01:39 ==
LOC: DI 01:19
PROVIDERS: PCP Family Medicine; Visit Provider Family Medicine
DX: M17.11 Unilateral primary osteoarthritis, right knee (principal)
CPT/HCPCS: 73562

== ENCOUNTER → 2025-04-22 09:53 | Outpatient (BNVA) | payer MEDICARE, OTHER, SELFPAY | PROVIDERS: PCP Family Medicine; Referring Provider Family Medicine; Visit Provider Podiatrist | DX: L60.3 Nail dystrophy (principal); B35.3 Tinea pedis; B35.1 Tinea unguium; S90.229A Contusion of unspecified lesser toe(s) with damage to nail, initial encounter; E11.21 Type 2 diabetes mellitus with diabetic nephropathy; N18.31 Chronic kidney disease, stage 3a; X58.XXXA Exposure to other specified factors, initial encounter | CPT/HCPCS: 99214 ==

== ENCOUNTER 2025-05-05 19:52 | Emergency (ER) | payer MEDICARE, OTHER, SELFPAY ==
[2025-05-05 19:55] VITALS: BP 169/54; PULSE 77; RESP 18; TEMP 36.3; O2SAT 98
--- NOTE | 2025-05-05 20:16 | W.ED.GENAD ---
Discharge Plan Disposition Patient Disposition: Home Condition: Stable Discharge Details Clinical Impression: Elevated blood sugar level Primary Care Provider: Catalina Corona ED Provider: Vasyl Moralez Home Meds and New Rx's Prescriptions: Continued (DME) Joel Blood Glucose Monitor Device See Rx Instructions .Route Rx Instructions: As directed urea 40 % cream 1 applic topical BID Qty: 198 3RF ketoconazole 2 % cream 1 applic topical DAILY Qty: 120 6RF Rx Instructions: Apply to 1g to skin and toenails once daily amlodipine 2.5 mg tablet 2.5 mg PO HS Qty: 90 3RF Jardiance 25 mg tablet 25 mg PO DAILY Qty: 90 3RF losartan 100 mg tablet 100 mg PO HS Qty: 90 3RF metformin 750 mg tablet extended release 24 hr 1,500 mg PO DAILY Qty: 180 3RF multivitamin 1 EACH tablet 1 tab PO HS aspirin 325 MG tablet 325 mg PO DAILY Qty: 100 Trulicity 0.75 mg/0.5 mL pen injector 0.75 mg subcut QWEEK Qty: 6 3RF Rx Instructions: to manage T2DM. chlorthalidone 50 mg tablet 50 mg PO HS Qty: 90 3RF allopurinol 100 mg tablet 100 mg PO HS Qty: 90 3RF metformin 500 mg tablet extended release 24 hr 500 mg PO .COMPLEX Qty: 270 3RF Rx Instructions: 500 mg orally 1 in AM, 2 in PM; (DME) Joel Blood Glucose Test Strip Strip See Rx Instructions .Route Qty: 100 3RF Rx Instructions: As directed - once daily testing rosuvastatin 10 mg tablet 10 mg PO HS Qty: 90 3RF omega-3 fatty acids-fish oil 360-1,200 mg capsule 1 cap PO HS gabapentin 300 mg capsule 300 mg PO QHS PRN Discontinued clotrimazole 1 % cream 1 applic topical BID Qty: 45 3RF cholecalciferol (vitamin D3) 25 mcg (1,000 unit) capsule 1,000 unit PO HS Discharge Instructions Additional Instructions: Your blood glucose on your serum test was 132. It is likely the testing equipment you use is not functioning properly. Follow-up with your primary care provider as needed. If you feel more ill or have new symptoms such as difficulty breathing or severe abdominal pain return to the emergency department for reevaluation. HPI General Mode of arrival: ambulatory. Date/Time Provider Initiated Documentation: 05/05/25 20:06. Limitations to Documentation: no limitations. Information obtained by: patient. History of Present Illness 74 year old F presents to the emergency department with the chief complaint of elevated blood sugars at home, described as mild, Patient started experiencing this day(s) (1) and it has been constant. No relieving factors improve symptom(s), No exacerbating factors reported . Patient notes no other symptoms.. Patient did receive the following treatments prior to arrival, none Related Data Home Medications ?Medication ?Instructions ?Recorded ?Confirmed multivitamin 1 tab PO HS 02/01/13 05/05/25 aspirin 325 mg tablet 325 mg PO DAILY #100 tab-caps 09/17/14 05/05/25 blood-glucose meter,mobile dev 10/07/22 05/05/25 (Joel Blood Glucose Monitor) omega-3 fatty acids-fish oil 360 1 cap PO HS 07/27/23 05/05/25 mg-1,200 mg capsule dulaglutide 0.75 mg/0.5 mL 0.75 mg (0.5 mL) subcut QWEEK #6 mL 08/07/24 05/05/25 subcutaneous pen injector (Trulicity) chlorthalidone 50 mg tablet 50 mg PO HS #90 tabs 10/10/24 05/05/25 amlodipine 2.5 mg tablet 2.5 mg PO HS #90 tabs 10/30/24 05/05/25 empagliflozin 25 mg tablet 25 mg PO DAILY #90 tabs 10/30/24 05/05/25 (Jardiance) losartan 100 mg tablet 100 mg PO HS #90 tabs 10/30/24 05/05/25 metformin 750 mg tablet,extended 1,500 mg (2 x 750 mg) PO DAILY 10/30/24 05/05/25 release 24 hr #180 tabs allopurinol 100 mg tablet 100 mg PO HS #90 tab-caps 03/31/25 05/05/25 metformin 500 mg tablet,extended 500 mg PO .COMPLEX #270 tabs 03/31/25 05/05/25 release 24 hr ketoconazole 2 % topical cream 1 applic topical DAILY #120 grams 04/22/25 05/05/25 urea 40 % topical cream 1 applic topical BID #198 grams 04/22/25 05/05/25 blood sugar diagnostic (Joel #100 ea 05/05/25 05/05/25 Blood Glucose Test Strip) gabapentin 300 mg capsule 300 mg PO QHS PRN 05/05/25 05/05/25 rosuvastatin 10 mg tablet 10 mg PO HS #90 tabs 05/05/25 05/05/25 Previous Rx's ?Medication ?Instructions ?Recorded dulaglutide 0.75 mg/0.5 mL 0.75 mg (0.5 mL) subcut QWEEK #6 mL 08/07/24 subcutaneous pen injector (Trulicity) chlorthalidone 50 mg tablet 50 mg PO HS #90 tabs 10/10/24 amlodipine 2.5 mg tablet 2.5 mg PO HS #90 tabs 10/30/24 empagliflozin 25 mg tablet 25 mg PO DAILY #90 tabs 10/30/24 (Jardiance) losartan 100 mg tablet 100 mg PO HS #90 tabs 10/30/24 metformin 750 mg tablet,extended 1,500 mg (2 x 750 mg) PO DAILY 10/30/24 release 24 hr #180 tabs allopurinol 100 mg tablet 100 mg PO HS #90 tab-caps 03/31/25 metformin 500 mg tablet,extended 500 mg PO .COMPLEX #270 tabs 03/31/25 release 24 hr ketoconazole 2 % topical cream 1 applic topical DAILY #120 grams 04/22/25 urea 40 % topical cream 1 applic topical BID #198 grams 04/22/25 blood sugar diagnostic (Joel #100 ea 05/05/25 Blood Glucose Test Strip) rosuvastatin 10 mg tablet 10 mg PO HS #90 tabs 05/05/25 Allergies Allergy/AdvReac Type Severity Reaction Status Date / Time Gadolinium-Containing Allergy Intermediate Skin Rash Verified 05/05/25 20:04 Contrast Medi nickel Allergy Intermediate Skin Rash Verified 05/05/25 20:04 Calcium Channel Blocking AdvReac Severe PEDAL EDEMA Verified 05/05/25 20:04 Agents-Dih atorvastatin AdvReac Intermediate INTOLERANT, Verified 05/05/25 20:04 WEAKNESS General Stated Complaint: Diabetes NILSON: 3 Review of Systems All systems reviewed & are unremarkable except as noted in HPI and below Constitutional Constitutional: Denies chills, Denies fever(s) and Denies weakness Cardiovascular Cardiovascular: Denies chest pain and Denies dyspnea Respiratory Respiratory: Denies cough and Denies dyspnea Gastrointestinal Gastrointestinal: Denies abdominal pain, Denies nausea and Denies vomiting Musculoskeletal Musculoskeletal: Denies joint swelling Neurologic Neurologic: Denies weakness Exam Const General: no acute distress Orientation: alert HENMT Head: normal to inspection Ears: external ears normal General nose exam: external nose normal Mouth: moist mucous membranes Eyes General: appearance normal, both eyes and all related structures Neck Neck: normal visual inspection Resp Effort & Inspection: normal respiratory effort and able to speak in complete sentences Cardio Rate: regular rate Skin General skin exam: no rashes or lesions noted Neuro General: patient alert and patient oriented x3 Extrem General: normal to inspection Psych Mental Status: mental status grossly normal Course Vital Signs Vital signs: Vital Signs Temperature 36.3 C L 05/05/25 19:55 Pulse 77 05/05/25 19:55 Respiratory Rate 18 05/05/25 19:55 Blood Pressure 169/54 H 05/05/25 19:55 Pulse Oximetry 98 05/05/25 19:55 Temperature 36.3 C L 05/05/25 19:55 Temperature Source Oral 05/05/25 19:55 Pulse 77 05/05/25 19:55 Respiratory Rate 18 05/05/25 19:55 Blood Pressure 169/54 H 05/05/25 19:55 Blood Pressure Position Sitting 05/05/25 19:55 Pulse Oximetry 98 05/05/25 19:55 Oxygen Delivery Method Room Air 05/05/25 19:55 Oxygen Flow Rate 0 05/05/25 19:55 Pain Level 0 05/05/25 19:55 Medical Decision Making 74-year-old female with a history of type 2 diabetes who states she does not check her blood sugars frequently as she says her A1c's are usually reassuring but has a family member that is trying to be tech I was showing her how to check her blood sugars yesterday the reading on her iPhone stella that she uses to check her sugars it was reading as over 300. She says she otherwise feels well and rechecked it today and was over 400 so came here for an evaluation. She is well-appearing and denies any chest pain, difficulty breathing, fevers, urinary symptoms. She has a blood glucose fingerstick here 119. I suspect her device or test strips are not functioning correctly. I will confirm with a CBC CMP and also send a VBG and A1c Labs unremarkable, serum glucose 132. She is asymptomatic still. She is get an order to chest material. 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 COVID-19 positive test on 10-14-20 1st dose of vaccine: 09-22-20 Surgical History Incision & Drainage, Abscess or Hematoma (09/25/13) RIGHT HAND Dilation and curettage X 2 Colonoscopy - MAC (07/27/23) 01/08/2018 Family History Mother , age 97 Asthma Cancer Father , age 54 Heart disease Myocardial infarction Sister Bladder cancer Sister Diabetes Essential hypertension Brother No problems noted. Maternal Grandfather Alcohol abuse Heart disease Paternal Grandfather Lung cancer Maternal Grandmother Heart disease Paternal Grandmother Essential hypertension Heart disease Uterine cancer Son Essential hypertension Daughter Alcohol abuse Depression Social History Smoking/Tobacco Use Status: Former Tobacco Use tobacco type: cigarettes Quit Date: 09/25/83 Tobacco: How many years used: 15 Second Hand Exposure: Yes Smoking risk assessment performed?: Yes Alcohol Intake: current Alcohol Intake frequency: holidays/special occasions only Alcohol type: wine Drug use: Never Substance use type: does not use Household members: other Details: guardian for her granddaughter Housing: house Number of Children: 2 number of grandchildren: 5 Communication Needs: Hard of Hearing Education Level: master's degree 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 Pets and animals: Yes Pets and animals: dog(s) Sexually active: No Do you think of yourself as: straight/heterosexual Current gender identity: decline to answer What is your relationship status?: How often do you talk on the phone with friends or family?: three or more times per week How often do you get together with friends or relatives?: three or more times per week How often do you attend hinduism or faith services?: 4 or more times per year Do you belong to any clubs or organized social groups?: yes Panel score (0-1 are the most socially isolated patients): 3 What type of physical activity do you participate in: walking Duration: < 15 minutes/day Frequency: 5-6 times per week Raquel/Orthodox: Shinto Special raquel needs: No Seatbelt use: always Drive intox or ride w/intox livery car driver: No Do you feel safe at home: Yes Do you feel safe in your relationship?: Yes Additional Social history: Granddaughter lives with her
[2025-05-05 20:30] LABS: BE (Venous) 2 mmol/L (-2-3); HCO3 (Venous) 26 mmol/L (23-28); O2 Sat (Venous) 93 %; TCO2 (Venous) 24 mmol/L (24-29); pCO2 (Venous) 40 mmHg (41-51); pO2 (Venous) 64 mmHg
[2025-05-05 20:31] LABS: Abs Immature Grans 0.02 10^3/uL (0.0-0.06); HCT 37.2 % (36.0-46.0); HGB 11.7 g/dL (11.2-15.7); Immature Grans % 0.3 %; MCH 26.5 pg (27.0-33.0); MCHC 31.5 % (32.0-36.0); MCV 84 fL (80-95); MPV 10.5 fL (8.0-11.0); Platelet Count 263 10^3/uL (130-400); RBC 4.42 10^6/uL (3.93-5.22); RDW 14.3 % (11.7-14.6); RDW-SD 43.8 fL; WBC 6.84 10^3/uL (4.4-10.8)
[2025-05-05 20:39] LABS: Glucose 500 mg/dL (Negative)
[2025-05-05 20:44] LABS: Hemoglobin A1C 6.2 % (<5.7)
[2025-05-05 20:47] LABS: Magnesium 2.2 mg/dL (1.8-2.4)
[2025-05-05 20:49] LABS: C & S Indicated? No; RBC Negative HPF (0-2); WBC 0-2 HPF (0-5)
[2025-05-05 20:51] LABS: ALT 49 U/L (14-59); AST 32 U/L (15-37); Albumin 3.3 g/dL (3.4-5.0); Alkaline Phosphatase 83 U/L (46-116); Anion Gap 10.1 mmol/L (3-11); BUN 26 mg/dL (7-18); Bilirubin, Total 0.3 mg/dL (0.2-1.0); CO2 26.9 mmol/L (21.0-32.0); Calcium 9.1 mg/dL (8.5-10.1); Chloride 103 mmol/L (98-107); Estimated GFR 52.08 (mL/min/1.73m2); Glucose 132 mg/dL (74-106); Potassium 3.5 mmol/L (3.5-5.1); Sodium 140 mmol/L (136-145); Total Protein 6.1 g/dL (6.4-8.2)
[2025-05-05 21:08] VITALS: BP 144/68; PULSE 64; RESP 19; TEMP 36.6; O2SAT 98
== END 2025-05-05 21:08 | disposition home or self-care (01) ==
PROVIDERS: Emergency Provider Emergency Medicine; PCP Family Medicine
DX: E11.65 Type 2 diabetes mellitus with hyperglycemia (principal); I10 Essential (primary) hypertension; Z60.8 Other problems related to social environment
CPT/HCPCS: 99283 ×2; 36416; 82962; 80053; 82805; 81003; 81015; 83036; 83735; 85025

== ENCOUNTER → 2025-05-19 09:42 | Outpatient (BNVA) | payer MEDICARE, OTHER, SELFPAY | PROVIDERS: PCP Family Medicine; Referring Provider Family Medicine; Visit Provider Physician Assistant | DX: M17.11 Unilateral primary osteoarthritis, right knee (principal) | CPT/HCPCS: 99213 ==

== ENCOUNTER → 2025-07-25 03:38 | Outpatient (CLI) | payer MEDICARE, OTHER, SELFPAY ==
--- NOTE | 2025-07-25 07:30 | DI.DEXA_ITS ---
Exam(s) XR DEXA BONE DENSITY W/WO DB EXAM: XR DEXA BONE DENSITY W/WO DB CLINICAL HISTORY: screening,menopausal disorder,n95.9 TECHNIQUE: COMPARISON: No exams were available for comparison FINDINGS: Lateral Spine Image: Unremarkable. No compression deformities identified. Left hip: Total T-Score: 0.8 Total Z-Score: 2.7 T- and Z-scores: Within normal limits. Lumbar Spine: Total T-Score: 2.9 Total Z-Score: 5.4 T- and Z-scores: Within normal limits. IMPRESSION: No evidence of osteoporosis.
--- NOTE | 2025-07-25 15:33 | DI.MAMMO_ITS ---
Exam(s) MAMMO SCREENING EXAM: MAMMO SCREENING CLINICAL HISTORY: screening,z12.39. TECHNIQUE: Bilateral full field digital CC and MLO mammographic images were obtained with 3D tomosynthesis and utilizing computer aided detection (CAD). COMPARISON: Prior mammograms were reviewed. FINDINGS: There has been no significant change in the appearance and distribution of the fibroglandular tissue. Asymmetric tissue in the upper-outer quadrant the right breast is unchanged from prior mammograms. Asymmetric nodular tissue in the anterior medial aspect of the left breast is also unchanged from prior mammograms. Small microcalcification group located 7 cm in from the nipple in the left breast on the CC view also appears stable. There are no new spiculated masses nor malignant appearing microcalcification groups. There is no significant architectural distortion nor skin thickening-retraction. IMPRESSION: Stable benign-appearing findings. No radiographic evidence of malignancy. BI-RADS Category 2 - Benign Findings Breast Density - Category B - There are scattered areas of fibroglandular density. Breast density Category C or D implies that the patient has dense breast tissue. Dense breast tissue can make it harder to find cancer on a mammogram. Dense breast tissue is also associated with an increased risk of breast cancer. This information about the result of the mammogram report was provided to the patient to raise their awareness. Use this report when you speak with the patient about their risks for breast cancer, which includes their family history. At that time, you may recommend additional screening tests (Ultrasound or MRI) as these tests may add significant information. A negative radiographic report should not delay biopsy if a dominant or clinically suspicious mass is present. Up to ten percent of cancers are not identified on mammography. A negative report may reinforce clinical impression. Adenosis and dense breasts may obscure an underlying neoplasm. False positive reports average 6 to 10%. Patient will receive a letter notifying them of these results.
== END ==
LOC: DI 03:38
PROVIDERS: PCP Family Medicine; Visit Provider Family Medicine
DX: Z12.31 Encounter for screening mammogram for malignant neoplasm of breast (principal); N95.9 Unspecified menopausal and perimenopausal disorder; Z13.820 Encounter for screening for osteoporosis
CPT/HCPCS: 77063; 77067; 77080

== ENCOUNTER → 2025-09-02 09:31 | Outpatient (BNVA) | payer MEDICARE, OTHER, SELFPAY | PROVIDERS: PCP Family Medicine; Referring Provider Family Medicine; Visit Provider Podiatrist | DX: L60.3 Nail dystrophy (principal); M79.674 Pain in right toe(s); M79.675 Pain in left toe(s); B35.1 Tinea unguium; B35.3 Tinea pedis; M21.611 Bunion of right foot; S90.211A Contusion of right great toe with damage to nail, initial encounter; X58.XXXA Exposure to other specified factors, initial encounter; E11.21 Type 2 diabetes mellitus with diabetic nephropathy; E11.22 Type 2 diabetes mellitus with diabetic chronic kidney disease; N18.31 Chronic kidney disease, stage 3a; L60.2 Onychogryphosis; L60.8 Other nail disorders | CPT/HCPCS: 11721 ==